=== PATIENT | female | born 1985 | race Two or more races ===

== ENCOUNTER → 2021-08-31 10:13 | Outpatient (BNVA) | payer OTHER, SELFPAY | PROVIDERS: PCP Internal Medicine; Visit Provider Psychiatry & Neurology Neurology ==

== ENCOUNTER → 2021-09-14 14:51 | Outpatient (BNVA) | payer OTHER, SELFPAY | PROVIDERS: PCP Internal Medicine; Visit Provider Nurse Practitioner Family ==

== ENCOUNTER 2021-09-26 17:32 | Emergency (ER) | payer OTHER, SELFPAY ==
--- NOTE | ~2021-09-26 | CT_ITS ---
EXAMINATION: CTA OF THE HEAD AND NECK CLINICAL INFORMATION: r sided numbness since 11 am r/o cva COMPARISON: None TECHNIQUE: Test bolus sequences followed by intravenous administration of 70 mL of Omnipaque 350. Helical imaging was performed in the axial plane from the mediastinum to the skull vertex. Precontrast imaging of the head and additional delayed postcontrast imaging of the head was also performed. The data was processed at the medical imaging technologist's workstation for generation of MIP sequences. Three-dimensional volume rendered reformatted images were also generated at an offline 3-D workstation. Stenoses are assessed in accordance with NASCET criteria unless otherwise indicated. This CT examination was performed using dose optimization techniques as appropriate, variously including the following: *Automated exposure control *Adjustment of mA and/or kV according to patient size (this includes techniques or standardized protocols for targeted exams where dose is matched to indication/reason for exam; i.e. extremities or head) *Use of iterative reconstruction technique DLP: 2229 mGy-cm. FINDINGS: CT head: There is no evidence of acute intracranial hemorrhage or territorial infarction. There is no loss of stewart to white matter differentiation. No abnormal mass effect or midline shift is seen. No extra-axial fluid collections are identified. There is no abnormal enhancement. The ventricles are normal in size. There is no abnormal attenuation within the brain parenchyma. The osseous structures and soft tissues are normal. The mastoid air cells and visualized portions of the paranasal sinuses are well aerated. CTA neck: The aortic arch is of normal contour and caliber. 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 No significant stenosis of the branch origins. The common and internal carotid arteries opacify normally without focal stenosis or occlusion. The cervical segments of the vertebral arteries opacify normally without focal stenosis or occlusion. There are multiple hypoattenuating foci in the bilateral thyroid lobes measuring up to 1.6 cm in diameter on the left. Soft tissues are otherwise unremarkable. The visualized lung apices and upper mediastinum are within normal limits. CTA head: There is normal opacification of major intracranial arteries. No focal flow-limiting stenosis, discrete proximal large artery occlusion, or saccular intradural aneurysm. Normal contrast opacification of the petrous, cavernous, paraophthalmic, and supraclinoid segments of the internal carotid arteries without focal stenosis. Normal appearance of the anterior cerebral and middle cerebral arteries without focal occlusion or stenosis. Normal anterior communicating artery. Normal arborization of the middle cerebral arteries. Normal appearance of the intradural vertebral and posterior inferior cerebellar arteries. Left dominant vertebral arteries. Normal appearance of the basilar, superior cerebellar, and P1 segments of the posterior cerebral arteries. Normally opacified posterior communicating arteries. Normal appearance of the distal segments of the posterior cerebral arteries bilaterally. CT/CT angio head neck IMPRESSION: 1. No acute intracranial abnormalities. No acute vascular findings are identified in the head and neck. 2. 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 3. Multiple thyroid nodules measuring up to 1.6 cm in diameter. Based on the recommendations of the ACR Incidental Thyroid Findings Committee (JACR 2015 Aug; 12(2):143-50), further evaluation by thyroid ultrasound is recommended for solitary incidental thyroid nodules greater than or equal to 1.5 cm in largest axial dimension in patients age 35 years and older who do not have limited life expectancy or significant morbidities, unless clinically warranted.
[2021-09-26 19:35] VITALS: BP 143/89; PULSE 100; RESP 18; TEMP 37; O2SAT 100; BMI 32.6
[2021-09-26 22:57] LABS: MANUAL DIFF FLAG NO
[2021-09-26 22:58] LABS: Basophils Percent Auto 0.2 % (0-2); Eosinophils Absolute Auto 0.2 X10*3/uL (0.0-0.4); Eosinophils Percent Auto 1.9 % (0-4); Hematocrit 35.9 % (37.0-47.0); Hemoglobin 11.9 g/dl (12.0-16.0); Imm Gran Abs Auto 0.04 X10*3/uL (0.00-0.03); Imm Gran Pct Auto 0.4 % (0.0-0.4); Lymphocytes Absolute Auto 1.8 X10*3/uL (1.2-4.9); Lymphocytes Percent Auto 18.7 % (20-40); Mean Corpuscular HGB Conc 33.1 g/dl (31.0-35.0); Mean Corpuscular Hemoglobin 29.7 pg (27.0-33.0); Mean Corpuscular Volume 89.5 fL (80.0-98.0); Mean Platelet Volume 10.7 fL (9.4-12.3); Monocytes Absolute Auto 0.5 X10*3/uL (0.1-1.2); Monocytes Percent Auto 4.8 % (2-11); Neutrophils Absolute Auto 7.3 x10*3/uL (2.0-8.3); Platelet Count 237 X10*3/uL (160-400); Red Blood Count 4.01 X10*6/uL (4.20-5.50); Red Cell Distribution Width 14.2 % (11.0-16.0); White Blood Count 9.9 X10*3/uL (4.8-10.8)
[2021-09-26 23:13] LABS: Alanine Aminotransferase 21 U/L (0-31); Alkaline Phosphatase 131 U/L (39-117); Anion Gap 12 (12-20); Aspartate Amino Transferase 18 U/L (5-31); Bilirubin Direct < 0.2 mg/dL (0.0-0.5); Bilirubin Total 0.3 mg/dL (0.0-1.0); Blood Urea Nitrogen 7 mg/dL (9-16); Calcium 8.9 mg/dL (8.4-10.2); Carbon Dioxide 26 mmol/L (22-29); Chloride 101 mmol/L (96-108); Creatinine Clr Calc Pharmacy 103.9; Estimated Glomerular Filt Rate > 60; Glucose Random 172 mg/dL (60-115); Potassium 3.5 mmol/L (3.3-5.1); Sodium 135 mmol/L (135-145); Total Protein 7.1 g/dL (6.5-8.0)
[2021-09-27 00:01] VITALS: BP 122/71; PULSE 93; RESP 18; O2SAT 98
--- NOTE | 2021-09-27 00:03 | ED.GENADULT ---
HPI - General Adult General Chief complaint: General Medical Stated complaint: Facial numbness and tingling in legs Time Seen by Provider: 09/27/21 00:03 Source: patient Mode of arrival: ambulatory Limitations: no limitations History of Present Illness HPI narrative: Patient history of migraine headache noticed right facial right upper extremity right lower extremity paresthesia since 11:00 feels tingly sensations right upper extremity tingling has improved no facial drooping no muscular weakness no speech problem no headache patient never had similar feeling in the past Related Data Home Medications Medication Instructions Recorded Confirmed cetirizine 10 mg tablet (All Day 10 mg PO DAILY PRN 07/07/21 09/14/21 Allergy (cetirizine)) magnesium oxide 400 mg (241.3 mg 400 mg PO DAILY 07/07/21 09/14/21 magnesium) tablet meclizine 25 mg tablet 25 mg PO TID 07/07/21 09/14/21 meloxicam 7.5 mg tablet 7.5 mg PO DAILY 07/07/21 09/14/21 ondansetron 4 mg disintegrating 4 mg PO Q8H 07/07/21 09/14/21 tablet riboflavin (vitamin B2) 400 mg 400 mg PO DAILY 07/07/21 09/14/21 tablet sumatriptan succinate 50 mg tablet 50 mg PO Q2-4H PRN 07/07/21 09/14/21 cyclobenzaprine 10 mg tablet 10 mg PO BEDTIME PRN 08/31/21 09/14/21 Previous Rx's Medication Instructions Recorded cyclobenzaprine 10 mg tablet 10 mg PO BEDTIME #30 tab 08/31/21 omeprazole 20 mg capsule,delayed 20 mg PO DAILY #30 cap 08/31/21 release prednisone 10 mg tablet See Rx Instructions PO DAILY #45 08/31/21 tab amitriptyline 25 mg tablet 25 mg PO BEDTIME #30 tab 09/14/21 Allergies Allergy/AdvReac Type Severity Reaction Status Date / Time No Known Allergies Allergy Verified 08/31/21 10:23 Review of Systems Review of Systems: Yes all other systems are reviewed and are negative [facility] Past Medical History Medical History Concussion Headache Vertigo Surgical History Status post surgery Family History Family History Mother HTN (hypertension) Diabetes Migraine Father High cholesterol Social History Social History Alcohol intake: never Patient Tobacco Use Status: Never used Tobacco Advance Directives: No Advance Directives Information Provided: Yes Patient : No Physical Exam ED Vital Signs: Vital Signs - 24 hr 09/26/21 19:35 09/27/21 00:01 Temperature 98.6 F Pulse Rate 100 93 Respiratory Rate 18 18 Blood Pressure 143/89 H 122/71 Pulse Oximetry 100 98 BMI result Body Mass Index 32.6 Appearance: Alert. Oriented X3. No acute distress. Eyes: PERRLA, No Nystagmus ENT: Pharynx normal. Oral Mucosa moist Neck: Normal inspection. Neck supple. CVS: Normal heart rate and rhythm. Pulses normal. Respiratory: No respiratory distress. Equal air entry bilateral, no wheezing/rales/rhonchi Abdomen: Soft and nontender. Bowel sounds are present, no mass palpable, no CVA tenderness Skin: Skin warm and dry. Normal skin color. Normal skin turgor. Extremities: No lower extremity edema. No calf tenderness Neuro: Oriented X 3. No motor deficit. No sensory deficit.No cerebellar signs , cranial nerves II-XII intact subjective paresthesia on right side of face and right leg NIH Stroke Scale Internal: Initial- Upon Arrival Level of Consciousness: Alert Level of Consciousness Questions: Answers both questions correctly Level of Consciousness Commands: Performs both tasks correctly Best Gaze: Normal Visual: No visual loss Facial Palsy: Normal Motor Arm (Right): No drift Motor Arm (Left): No drift Motor Leg (Right): No drift Motor Leg (Left): No drift Limb Ataxia: Absent Sensory: Normal Best Language: No aphasia Dysarthia: Normal Extinction and Inattention: No abnormality Score: 0 Medical Decision Making MDM Narrative Medical decision making narrative: Patient nonspecific numbness on the right side at this time patient does not have any headache but does have a history of headaches could be a complex migraine causing the paresthesia during stay in the ER patient felt better numbness in the right upper extremity almost gone and from the face also getting better no motor weakness noticed CTA head and neck was negative for any acute occlusion feet patient advised to take baby aspirin and follow with neurologist in the CT scan of the head and neck also noticed to have nodules in the thyroid patient advised to follow with PCP for that Lab Data Lab results reviewed: Yes I reviewed the patient's lab results. Result diagrams: 09/26/21 22:47 09/26/21 22:47 Labs: Lab Results 09/26/21 09/26/21 Range/Units 22:47 22:47 WBC 9.9 (4.8-10.8) X10*3/uL RBC 4.01 L (4.20-5.50) X10*6/uL Hgb 11.9 L (12.0-16.0) g/dl Hct 35.9 L (37.0-47.0) % MCV 89.5 (80.0-98.0) fL MCH 29.7 (27.0-33.0) pg MCHC 33.1 (31.0-35.0) g/dl RDW 14.2 (11.0-16.0) % Plt Count 237 (160-400) X10*3/uL MPV 10.7 (9.4-12.3) fL Immature Gran % (Auto) 0.4 (0.0-0.4) % Neut % (Auto) 74.0 H (45-73) % Lymph % (Auto) 18.7 L (20-40) % O'Brien % (Auto) 4.8 (2-11) % Eos % (Auto) 1.9 (0-4) % Baso % (Auto) 0.2 (0-2) % Lymph # (Auto) 1.8 (1.2-4.9) X10*3/uL O'Brien # (Auto) 0.5 (0.1-1.2) X10*3/uL Eos # (Auto) 0.2 (0.0-0.4) X10*3/uL Baso # (Auto) 0.0 (0.0-0.2) X10*3/uL Abs Immat Gran (auto) 0.04 H (0.00-0.03) X10*3/uL Absolute Neuts (auto) 7.3 (2.0-8.3) x10*3/uL Absolute Nucleated RBC 0.000 (0.0-0.012) X10*3/uL Nucleated RBC % (auto) 0.0 (0.0-0.2) /100WBC Sodium 135 (135-145) mmol/L Potassium 3.5 (3.3-5.1) mmol/L Chloride 101 (96-108) mmol/L Carbon Dioxide 26 (22-29) mmol/L Anion Gap 12 (12-20) BUN 7 L (9-16) mg/dL Creatinine 0.71 (0.5-1.4) mg/dL Estim Creat Clear Calc 103.9 Estimated GFR > 60 Random Glucose 172 H (60-115) mg/dL Calcium 8.9 (8.4-10.2) mg/dL Total Bilirubin 0.3 (0.0-1.0) mg/dL Direct Bilirubin < 0.2 (0.0-0.5) mg/dL AST 18 (5-31) U/L ALT 21 (0-31) U/L Alkaline Phosphatase 131 H (39-117) U/L Total Protein 7.1 (6.5-8.0) g/dL Albumin 4.0 (3.5-5.0) g/dL Discharge Plan Discharge Clinical Impression: Paresthesia Patient Disposition: Home, Self-Care Instructions: Paresthesia (ED) Additional Instructions: Take medication as prescribed by your PCP No stroke finding seen in the CT scan Your symptoms could be from atypical migraine Follow with PCP about the thyroid issue which was seen in CT scan Follow with neurologist Report to ER if worsening of the symptoms/weakness Take 81 mg aspirin daily for now Prescriptions: No Action cetirizine [All Day Allergy (cetirizine)] 10 mg tablet 10 mg PO DAILY PRN0RF magnesium oxide 400 mg (241.3 mg magnesium) tablet 400 mg PO DAILY 0RF meclizine 25 mg tablet 25 mg PO TID 0RF meloxicam 7.5 mg tablet 7.5 mg PO DAILY 0RF ondansetron 4 mg tablet,disintegrating 4 mg PO Q8H 0RF riboflavin (vitamin B2) 400 mg tablet 400 mg PO DAILY 0RF sumatriptan succinate 50 mg tablet 50 mg PO Q2-4H PRN0RF Rx Instructions: do not exceed 4 doses per 24 hrs cyclobenzaprine 10 mg tablet 10 mg PO BEDTIME PRN (Reason: muscle spasm) 0RF cyclobenzaprine 10 mg tablet 10 mg PO BEDTIME Qty: 30 0RF prednisone 10 mg tablet See Rx Instructions PO DAILY Qty: 45 0RF Rx Instructions: 6pblbypT2 days, 5tabs qd X2 days 4tabs qd X 2 days 3tabs qd X2 days 2 tabs qd X 2 days ,1 tabs qd X 2 days PO daily; omeprazole 20 mg capsule,delayed release(DR/EC) 20 mg PO DAILY Qty: 30 0RF amitriptyline 25 mg tablet 25 mg PO BEDTIME Qty: 30 2RF Interventions: ED Discharge Assessment Last Done: 09/27/21 01:31 Discharge Date/Time: 09/27/21 01:32
--- NOTE | 2021-09-27 00:27 | PC.NURSE ---
IV established, pt off to CT.
[2021-09-27] MEDS: iohexoL 350 MG/ML 100 ML INFUS..BTL 70 ML IV (01:01)
[2021-09-27] MEDS: Aspirin 81 MG TAB.CHEW PO (01:29)
== END 2021-09-27 01:32 | disposition home or self-care (01) ==
PROVIDERS: Emergency Provider Internal Medicine; PCP Internal Medicine
DX: R20.2 Paresthesia of skin (principal)
CPT/HCPCS: 36415; 70496; 70498; 80053; 82248; 85025; 99284; Q9967

== ENCOUNTER → 2021-10-31 15:56 | Outpatient (REF) | payer OTHER, SELFPAY | LOC: HO.SL 15:56 | PROVIDERS: PCP Internal Medicine; Visit Provider Nurse Practitioner Family | DX: R40.0 Somnolence (principal); R06.83 Snoring | CPT/HCPCS: 95806 ==

== ENCOUNTER → 2021-11-07 14:36 | Outpatient (BNVA) | payer OTHER, SELFPAY | PROVIDERS: PCP Internal Medicine; Visit Provider Nurse Practitioner Family | DX: Z13.89 Encounter for screening for other disorder (principal) ==

== ENCOUNTER → 2022-07-27 14:20 | Outpatient (BNVA) | payer OTHER, SELFPAY | PROVIDERS: PCP Internal Medicine; Visit Provider Nurse Practitioner Family | DX: Z13.89 Encounter for screening for other disorder (principal) ==